=== PATIENT | female | born 1990 | race Caucasian/White ===

== ENCOUNTER 2023-03-21 15:33 | Outpatient (AMB) | payer OTHER, SELFPAY ==
--- NOTE | 2023-03-21 15:37 | A.OFFVISP_ITS ---
Intake Pediatric Intake Visit Reasons: Pressure in ear Allergies No Known Allergies Allergy (Verified 12/16/22 14:10) PFSH Family History (Updated 12/16/22 @ 14:44 by Lila Matthew [facility]) Maternal Grandmother High blood pressure High cholesterol Maternal Grandfather No problems noted. 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 Coding Diagnoses
[2023-03-21 15:39] VITALS: BP 102/64; PULSE 76; RESP 12; TEMP 36.9; O2SAT 99; BMI 22.9
--- NOTE | 2023-03-21 15:39 | MHC.PC.OV ---
Vital Signs 03/21/23 15:39 Height 5 ft 1 in Weight 121 lb BMI 22.9 BP 102/64 Blood Pressure Location Lt brachial Position Sitting Respiration 12 Pulse 76 Pulse Source Pulse Oximeter Temp 98.5 F Temp Source Temporal Artery Scan Pulse Oximetry (%) 99 Oxygen Delivery Method Room Air Intake Visit Reasons: Pressure in ear Intake Note: Patient states that the pressure is in both ears. Patient states that she went to urgent care and was told that she has positional vertgo. Patient [place] [address] [place] and she believes this is causing the pressure. Patient states that meds given in urgent care only helped with dizziness and she still has alot of pressure. Engine Emission Technician Required: No Accompanied by: Self / Same As Patient Allergies No Known Allergies Allergy (Verified 03/21/23 16:02) Medication List - Last Reconciled 03/21/23 by Oneida Linder CNP No Known Home Meds Tobacco use date assessed: 03/21/23 Dental Screening Dental Screen Date: 03/21/23 Did you have a dental visit in the last 12 months?: No Did you have a dental problem in the last 6 months where you did not have access to dental care?: No Was dental information given to patient?: Patient has dentist HPI HPI Comments History of Present Illness Details 32-year-old female presents with complaints of persistent pressure in both ears. She reports intermittent pain in both ears. Her symptoms started shortly after returning from hiking in [place] a month ago. She prescribed meclizine at an urgent care for positional vertigo. The medication completely resolved initial dizziness. She states she continues to feel significant pressure in both ears which is sometimes aggravated by position change. She attributes her [place] [address] [place]. No fever, chills, body aches, fatigue, or weakness. [facility] Medical History (Updated 03/21/23 @ 16:17 by Oneida Linder CNP) H/O nephrolithotomy with removal of calculi No pertinent past medical history Surgical History No pertinent past surgical history Family History Maternal Grandmother High blood pressure High cholesterol Maternal Grandfather No problems noted. 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 Cognitive needs: No Hearing needs: No Vision needs: No Review of Systems Const Details: Const Denies chills, Denies fatigue, Denies fever(s), Denies headache(s) and Denies weakness ENT Reports as per HPI Card Denies chest pain, Denies lightheadedness, Denies dyspnea and Denies other (Palpitations) Resp Denies cough, Denies dyspnea, Denies wheezing and Denies other ( shortness of breath) GI Denies abdominal pain, Denies melena, Denies hematochezia, Denies change in bowel habits, Denies dyspepsia and Denies nausea Denies hematuria and Denies dysuria Musc Denies abnormal gait, Denies myalgias, Denies arthralgias, Denies numbness and Denies tingling Skin/Breast Denies rash, Denies unusual bruising and Denies wounds Neuro Denies abnormal gait, Denies dizziness, Denies headache(s), Denies memory loss, Denies numbness, Denies Sensory deficit (Neuro), Denies tingling and Denies weakness Psych Denies anxiety and Denies depression Endo Denies fatigue Aller/Immun Denies wheezing Physical exam (Primary Care) Vital Signs: Last Vital Signs Temp 98.5 F 03/21/23 15:39 Pulse 76 03/21/23 15:39 Resp 12 03/21/23 15:39 BP 102/64 03/21/23 15:39 Pulse Ox 99 03/21/23 15:39 Oxygen Delivery Method Room Air 03/21/23 15:39 BMI result Body Mass Index 22.9 Tobacco/Smoking Status: Tobacco use Status Tobacco use date assessed 03/21/23 03/21/23 15:49 Patient Tobacco Use Status Never used Tobacco 03/21/23 15:49 e-Cigarette/Vaping Use Never Used 03/21/23 15:49 Const Other: General: no acute distress and well developed Nutritional Appearance: well nourished Orientation/consciousness: patient oriented x3 HENMT Head is normocephalic Bilateral ear canal and TM are normal Nasal turbinates and oropharynx are pink and moist Sinuses are nontender with palpation No auricular or cervical lymphadenopathy Eyes General: appearance normal, both eyes and all related structures Pupils: Equal, round and reactive pupils present EOM: EOMs intact bilaterally Resp Effort & Inspection: normal respiratory effort Auscultation: clear to auscultation bilaterally Cardio Rate: regular rate Rhythm: regular rhythm Heart sounds: S1 normal heart sound present, S2 normal heart sound present, no gallops, no murmurs and no rubs GI Palpation (GI): No Abdominal aortic bruit present, Soft to palpation, nontender, No hepatosplenomegaly present and No Rebound tenderness present Auscultation: normal bowel sounds General: Yes no CVA tenderness Back/Spine/Pelvis Back: no CVA tenderness Cervical Spine: cervical ROM normal and No Cervical spine tenderness Thoracic/Lumbar Spine: thoraco-lumbar ROM normal, No pain with thoraco-lumbar ROM, No thoracic spinal tenderness and No lumbar spinal tenderness Extrem General: Yes normal to inspection, No edema and No calf tenderness Skin General: warm and dry. Normal skin color. Normal skin turgor Lesions: no lesions Rashes: no rashes Trauma: no lacerations or abrasions Wounds: no wounds Nails: normal Neuro General: patient oriented x3, gait normal and no focal neuro deficit Cranial nerves: Yes Equal, round and reactive pupils present Cognition (Neuro): normal cognition Gait exam (Neuro): Normal gait present Sensory Exam: No Sensory deficit (Neuro) Psych Affect: normal affect Assessment and Plan Assessment & Plan (1) Benign positional vertigo: Code(s): H81.10 - Benign paroxysmal vertigo, unspecified ear Plan: Reports significant pressure in both ears which is sometimes aggravated by position change Continue to take meclizine as prescribed Referred to PT for vestibular rehab Follow-up with worsening or new symptoms Verbalized understanding and agreed with the treatment plan. Orders: Orders PT Evaluation and Treatment Today H81.10 - Benign paroxysmal vertigo, unspecified ear Coding Level of Care Code Est Pt Level 3 (95188) Diagnoses Benign positional vertigo H81.10 Time Spent (min) 25
== END 2023-03-21 16:19 | disposition home or self-care (01) ==
PROVIDERS: PCP Hospitalist; Visit Provider Nurse Practitioner Family
DX: H81.10 Benign paroxysmal vertigo, unspecified ear (principal)
CPT/HCPCS: 99213